=== PATIENT | male | born 1995 | race Caucasian/White ===

== ENCOUNTER 2016-06-11 20:43 | Emergency (ER) | payer MEDICAID ==
[2016-06-12] MEDS ORDERED: ONDANSETRON 4 MG VIAL ONE (01:23)
[2016-06-12] MEDS ORDERED: SODIUM CHLORIDE 0.9% 1,000 ML ONE (01:23)
== END 2016-06-12 02:31 | disposition home or self-care (01) ==
LOC: ER 20:43
DX: K52.9 Noninfective gastroenteritis and colitis, unspecified (principal); F17.210 Nicotine dependence, cigarettes, uncomplicated
CPT/HCPCS: 36415; 74020; 80053; 81003; 83690; 85025; 96361; 96374